=== PATIENT | female | born 1960 | race Caucasian/White ===

== ENCOUNTER → 2023-06-28 10:09 | Outpatient (CLI) | payer OTHER, SELFPAY ==
--- NOTE | 2023-06-28 10:11 | DI.RAD.S_ITS ---
PROCEDURE: XR KNEE RT 3V INDICATIONS: RIGHT KNEE PAIN TECHNIQUE: 3 views of the knee were acquired. COMPARISON: None. FINDINGS: Bones: No fractures or dislocations. Tricompartmental osteoarthritic changes most pronounced within the medial compartment with marginal spurring and moderate medial joint space narrowing. No suspicious bony lesions. Soft tissues: No joint effusion. No suspicious soft tissue calcifications. IMPRESSION: Moderate osteoarthritic changes of the right knee. No acute osseous abnormalities. Dictated by: Devyn Mcnulty M.D. on 06/28/2023 at 11:50 Approved by: Devyn Mcnulty M.D. on 06/28/2023 at 11:55
--- NOTE | 2023-06-28 10:11 | DI.RAD.S_ITS ---
PROCEDURE: XR HIP W PEL IF DONE RT 2V INDICATIONS: RIGHT HIP PAIN TECHNIQUE: AP pelvis with lateral view(s) of the right hip(s). COMPARISON: None. FINDINGS: Bones: No fractures or dislocations. Mild degenerative changes of the bilateral hips. Degenerative changes of the visualized lower lumbar spine and pubic symphysis. Pelvic ring appears intact. No suspicious bony lesions. Soft tissues: The visualized bowel gas pattern is normal. No suspicious soft tissue calcifications. IMPRESSION: No acute osseous abnormalities. Mild degenerative changes of the hips. Dictated by: Devyn Mcnulty M.D. on 06/28/2023 at 11:57 Approved by: Devyn Mcnulty M.D. on 06/28/2023 at 11:58
== END ==
PROVIDERS: PCP Student in an Organized Health Care Education/Training Program; Referring Provider Anesthesiology; Visit Provider Anesthesiology
DX: M25.561 Pain in right knee (principal); M25.551 Pain in right hip
CPT/HCPCS: 73502; 73562

== ENCOUNTER → 2023-08-12 11:33 | Outpatient (CLI) | payer OTHER, SELFPAY ==
--- NOTE | 2023-08-12 11:36 | DI.MG.S_ITS ---
BILATERAL DIGITAL SCREENING MAMMOGRAM 3D/2D WITH CAD: 08/12/2023 CLINICAL: Routine screening. Comparison is made to exams dated: 01/09/2019 mammogram, 12/23/2017 mammogram, and 01/13/2020 mammogram - outside location. Both breasts are heterogeneously dense, which may obscure small masses (category c / 51-75% glandular tissue). Current study was also evaluated with a Computer Aided Detection (CAD) system. There are benign calcifications in the right breast. There also are biopsy clips in the left breast. No significant masses, calcifications, or other findings are seen in either breast. There has been no significant interval change. IMPRESSION: BENIGN There is no mammographic evidence of malignancy. A 1 year screening mammogram is recommended. Based on the Tyrer Cuzick model (a risk assessment model) the patient's lifetime risk is 12.0% and her 10 year risk is 5.1%. According to the ACR, ACS, and NCCN guidelines, an annual breast MRI exam along with mammogram is recommended if the patient's lifetime risk is 20% or greater. This exam was interpreted at Station ID: [id number]. NOTE: For mammograms, a report in lay terms will be sent to the patient. Approximately 15% of breast malignancies will not be visualized mammographically. In the management of a palpable breast mass, a negative mammogram must not discourage biopsy of a clinically suspicious lesion. Electronically Signed By: Anup [email or web address]:08/12/2023 13:03:06 letter sent: Normal Exam ACR BI-RADS Category 2: Benign Finding(s) [id number]
== END ==
PROVIDERS: PCP Student in an Organized Health Care Education/Training Program; Referring Provider Student in an Organized Health Care Education/Training Program; Visit Provider Student in an Organized Health Care Education/Training Program
DX: Z12.31 Encounter for screening mammogram for malignant neoplasm of breast (principal); R92.333 Mammographic heterogeneous density, bilateral breasts
CPT/HCPCS: 77063; 77067

== ENCOUNTER → 2023-09-27 14:15 | Outpatient (CLI) | payer OTHER, SELFPAY ==
--- NOTE | 2023-09-27 14:16 | DI.RAD.S_ITS ---
PROCEDURE: XR KNEE LT 3V INDICATIONS: Left knee pain TECHNIQUE: 3 views of the knee were acquired. COMPARISON: [facility], CR, XR KNEE RT 3V, 06/28/2023, 10:23. FINDINGS: Bones: No fractures or dislocations. No suspicious bony lesions. Tricompartment osteophytes. Chondrocalcinosis. Slight interval increase in lateral compartment joint space loss and development of mild lateral subluxation of the tibia relative to the femur. Soft tissues: No joint effusion. No suspicious soft tissue calcifications. IMPRESSION: Progressive CPPD arthropathy. Dictated by: Jere Osborn M.D. on 09/27/2023 at 15:58 Approved by: Jere Osborn M.D. on 09/27/2023 at 16:00
== END ==
PROVIDERS: PCP Student in an Organized Health Care Education/Training Program; Referring Provider Anesthesiology; Visit Provider Anesthesiology
DX: M11.862 Other specified crystal arthropathies, left knee (principal); M25.562 Pain in left knee
CPT/HCPCS: 73562

== ENCOUNTER → 2024-09-05 13:58 | Outpatient (CLI) | payer OTHER, SELFPAY ==
--- NOTE | 2024-09-05 13:59 | DI.MG.S_ITS ---
MM screening mammo BI: 09/05/2024. BI-RADS: 2 CLINICAL: 63-year old female for bilateral screening mammogram. Tyrer-Cuzick lifetime risk of 10.2%. No personal or first-degree family history of breast cancer. The patient had prior bilateral breast biopsies. The patient had a mastopexy in both breasts. PRIOR EXAMS 08/12/2023, 01/13/2020, 01/09/2019. MAMMOGRAPHY TECHNIQUE: 2D and 3D (tomosynthesis) digital mammographic views obtained, with additional images as needed for full coverage. Current study was also evaluated with a Computer Aided Detection (CAD) system. DENSITY C. The breasts are heterogeneously dense, which may obscure small masses. MAMMOGRAPHY FINDINGS Right: No suspicious mass, asymmetry, microcalcification, or other abnormality seen. Left: Biopsy markers present on the left. There are no suspicious masses, calcifications, or other findings in the breast. IMPRESSION: Right * No evidence of malignancy. Left * No evidence of malignancy with benign findings. RECOMMENDATIONS Bilateral * Annual screening mammography. OVERALL ASSESSMENT CATEGORY BI-RADS-2: Benign. The [employer] recommends annual screening mammography beginning at age 40 for women with average risk of breast cancer. ELECTRONICALLY SIGNED: Anup Orr M.D. on 09/05/2024 at 03:06:41 PM PT Interpreting Station ID: [id number]
== END ==
PROVIDERS: PCP Student in an Organized Health Care Education/Training Program; Referring Provider Student in an Organized Health Care Education/Training Program; Visit Provider Student in an Organized Health Care Education/Training Program
DX: Z12.31 Encounter for screening mammogram for malignant neoplasm of breast (principal); R92.333 Mammographic heterogeneous density, bilateral breasts
CPT/HCPCS: 77063; 77067

== ENCOUNTER → 2024-10-18 09:21 | Outpatient (CLI) | payer OTHER, SELFPAY ==
[2024-10-18 09:59] LABS: Add Manual Diff / Slide Review NO; Basophils Absolute Auto 0 /uL (0-100); Basophils Percent Auto 0.6 % (0-2); Eosinophils Absolute Auto 200 /uL (0-450); Eosinophils Percent Auto 2.7 % (2-4); Hematocrit 36.5 % (36-46); Hemoglobin 12.5 g/dL (12.0-16.0); Lymphocytes Absolute Auto 2500 /uL (1100-4500); Mean Corpuscular HGB Conc 34.2 % (30-36); Mean Corpuscular Hemoglobin 30.4 PG (26-34); Mean Corpuscular Volume 88.6 fL (80-100); Monocytes Absolute Auto 400 /uL (0-900); Monocytes Percent Auto 7.7 % (3-14); Neutrophils Absolute Auto 2500 /uL (1500-7000); Platelet Count 220 X10^3/uL (150-400); Red Blood Cell Count 4.12 X10^6/uL (4.0-5.2); Red Cell Distribution Width 12.7 % (11.6-14.8); White Blood Cell Count 5.6 X10^3/uL (4.5-11.0)
[2024-10-18 10:23] LABS: Alanine Aminotransferase 20 IU/L (<35); Albumin 4.8 g/dL (3.5-5.0); Albumin Globulin Ratio 1.8 (1.0-2.8); Alkaline Phosphatase 47 U/L (38-126); Aspartate Aminotransferase 30 IU/L (14-36); BUN Creatinine Ratio 24.7 (6-22); Bilirubin Total 0.7 mg/dL (0.2-1.3); Blood Urea Nitrogen 18 mg/dL (7-17); Calcium 10.6 mg/dL (8.4-10.2); Carbon Dioxide 27 mmol/L (22-32); Chloride 104 mmol/L (98-107); Cholesterol 212 mg/dL (140-199); Estimated Glomerular Filt Rate > 60 mL/min (>60); Globulin 2.6 g/dL (1.7-4.1); Glucose 82 mg/dL (70-99); HDL Cholesterol 75 mg/dL (40-60); HEMOLYSIS < 15 (0-50); LDL Cholesterol Calculated 100 mg/dL (<100); Sodium 139 mmol/L (137-145); Total Protein 7.4 g/dL (6.3-8.2); Triglycerides 186 mg/dL (35-150)
== END ==
PROVIDERS: PCP Student in an Organized Health Care Education/Training Program; Referring Provider Student in an Organized Health Care Education/Training Program; Visit Provider Student in an Organized Health Care Education/Training Program
DX: E78.00 Pure hypercholesterolemia, unspecified (principal); I10 Essential (primary) hypertension
CPT/HCPCS: 36415; 80053; 80061; 85025

== ENCOUNTER → 2024-10-23 10:58 | Outpatient (CLI) | payer OTHER, SELFPAY ==
[2024-10-24 10:12] LABS: Calcium 9.7 mg/dL (8.7-10.3); Parathyroid Hormone, Intact 72 pg/mL (15-65)
== END ==
PROVIDERS: PCP Student in an Organized Health Care Education/Training Program; Referring Provider Student in an Organized Health Care Education/Training Program; Visit Provider Student in an Organized Health Care Education/Training Program
DX: E83.52 Hypercalcemia (principal)
CPT/HCPCS: 36415; 82310; 83970

== ENCOUNTER → 2024-11-15 10:37 | Outpatient (CLI) | payer OTHER, SELFPAY ==
[2024-11-15 11:23] LABS: LDL Cholesterol Direct 128 mg/dL (<100)
[2024-11-17 08:36] LABS: Calcium 9.9 mg/dL (8.7-10.3); Parathyroid Hormone, Intact 60 pg/mL (15-65)
== END ==
PROVIDERS: PCP Student in an Organized Health Care Education/Training Program; Referring Provider Student in an Organized Health Care Education/Training Program; Visit Provider Student in an Organized Health Care Education/Training Program
DX: E83.52 Hypercalcemia (principal); E78.00 Pure hypercholesterolemia, unspecified
CPT/HCPCS: 36415; 82310; 83721; 83970

== ENCOUNTER 2024-11-28 08:29 | Emergency (ER) | payer OTHER, SELFPAY ==
[2024-11-28] VITALS (27 sets, daily range): BP systolic 105–144; BP diastolic 65–92; PULSE 84–107; RESP 15–18; TEMP 36.3–36.8; O2SAT 91–99; BMI 25.7
--- NOTE | 2024-11-28 09:12 | ED.ABDPAIN ---
HPI - Abdominal Pain <Alcon Knapp MD - Last Filed: 12/17/24 18:13> General Chief Complaint: Abdominal Pain Stated Complaint: Lower left stomach pain X 4 DAYS Time Seen by Provider: 11/28/24 09:06 Source: patient Mode of arrival: Ambulatory History of Present Illness HPI narrative: Patient has had slow onset left lower quadrant pain since this past Wednesday 3 days ago. No nausea or vomiting no urinary changes no urinary urgency. Pain radiates to the left lower back. Worse with movement and leaning forward. Patient had colonoscopy about 6 years ago. No known history of diverticulosis. No history of kidney stones. No black or bloody stools. Related Data Home Medications ?Medication ?Instructions ?Recorded ?Confirmed hard/soft/gas permeable prods 04/05/23 12/01/24 (Systane Contacts eye drops) loratadine 10 mg tablet (Claritin) 10 mg PO DAILY 04/05/23 12/07/24 tretinoin 0.025 % topical cream applic topical ONCE PM PRN 11/28/24 12/07/24 Previous Rx's ?Medication ?Instructions ?Recorded triamcinolone acetonide 0.5 % 1 applic topical DAILY #15 grams 06/24/23 topical cream amlodipine 10 mg tablet 10 mg PO DAILY #90 tabs 06/19/24 evolocumab 140 mg/mL subcutaneous 140 mg SUBCUT Q2W #6 mL 06/19/24 pen injector (Louis Velasquez) lisinopril 40 mg tablet 40 mg PO DAILY #90 tabs 06/19/24 meloxicam 15 mg tablet 15 mg PO DAILY #90 tabs 06/19/24 omeprazole 20 mg capsule,delayed 20 mg PO DAILY #90 caps 06/19/24 release omeprazole 40 mg capsule,delayed 40 mg PO DAILY #90 caps 08/03/24 release cyclosporine 0.05 % eye drops in a 1 drp EYE-BOTH BID #60 ea 09/08/24 dropperette gabapentin 300 mg capsule 600 mg (2 x 300 mg) PO BID #360 11/13/24 caps hydrocodone 5 mg-acetaminophen 325 1 tab PO Q8H PRN pain #10 tabs 11/28/24 mg tablet cyclobenzaprine 7.5 mg tablet 7.5 mg PO BEDTIME PRN muscle spasm 12/01/24 #20 tabs oxycodone 5 mg tablet 5 mg PO Q8H PRN pain #14 tabs 12/07/24 Allergies Allergy/AdvReac Type Severity Reaction Status Date / Time [id number] Reductase AdvReac Severe Muscle Pain Verified 12/07/24 12:00 Inhibitor Review of Systems <Alcon Knapp MD - Last Filed: 12/17/24 18:13> Review of Systems Narrative: GENERAL: Negative chills, fatigue, malaise, fever, sweats. HEENT: Negative sinus pain, ear pain, sore throat RESPIRATORY: Negative dyspnea, cough CARDIOVASCULAR: Negative chest pain, palpitations GASTROINTESTINAL: Negative vomiting, nausea, positive abdominal pain : Negative dysuria, frequency, hematuria MUSCULOSKELETAL: Negative muscle or bony pain SKIN: Negative rash, skin lesions NEUROLOGIC: Negative weakness, numbness ROS Unobtainable: All systems reviewed & are unremarkable except as noted in HPI and below Patient History <Alcon Knapp MD - Last Filed: 12/17/24 18:13> Medical History (Updated 12/13/24 @ 00:00 by ) Bilateral knee pain Osteoarthritis of knees, bilateral Left knee pain Osteoarthritis of hips, bilateral Osteoarthritis of right knee Right hip pain Right knee pain Smoking Status: Never smoker Exam <Alcon Knapp MD - Last Filed: 12/17/24 18:13> Narrative Exam Narrative: GENERAL: in no distress, not toxic not dyspneic HEAD: Normocephalic. EYES: Pupils equal round ENT: Mucous membranes moist. NECK: Trachea midline. CARDIOVASCULAR: Regular rate and rhythm RESPIRATORY: Clear to auscultation. Breath sounds equal bilaterally. No wheezes, rales, or rhonchi. GASTROINTESTINAL: Abdomen soft, no CVA tenderness. There is reproducible lower quadrant tenderness. No McBurney point tenderness no Kumar sign. No guarding no rebound. No pain out of portion exam. No peritoneal signs. Bowel sounds are present. EXTREMITIES: No gross deformities. BACK: No flank tenderness. NEURO: AOx4. Clear speech SKIN: Warm and dry PSYCH: Not anxious, is cooperative Initial Vital Signs Initial Vital Signs: Vital Signs Pulse Rate 105 H 11/28/24 08:37 Pulse Oximetry 98 11/28/24 08:37 <Brooke Ro MD - Last Filed: 11/28/24 21:07> Initial Vital Signs Initial Vital Signs: Vital Signs Pulse Rate 105 H 11/28/24 08:37 Pulse Oximetry 98 11/28/24 08:37 Course <Alcon Knapp MD - Last Filed: 12/17/24 18:13> Orders Ordered: Discontinued Medications Hydrocodone Bitart/Acetaminophen (Hydrocodone/Acet 5/325 Prepack) 1 bottle MISC DIRECTED ONE Stop: 11/28/24 21:07 Last Admin: 11/28/24 21:11 Dose: 1 bottle Documented By: STEPHAN Cefdinir (Cefdinir 300 Mg Capsule) 300 mg PO NOW ONE Stop: 11/28/24 12:22 Last Admin: 11/28/24 12:30 Dose: 300 mg Documented By: STEPHAN(2) Hydromorphone HCl (Hydromorphone 1 Mg Inj) 1 mg IV NOW ONE Stop: 11/28/24 10:47 Last Admin: 11/28/24 11:03 Dose: 1 mg Documented By: ATUL Hydromorphone HCl (Hydromorphone 1 Mg Inj) 1 mg IV NOW ONE Stop: 11/28/24 15:55 Last Admin: 11/28/24 16:01 Dose: 1 mg Documented By: STEPHAN Sodium Chloride (Normal Saline 0.9%) 250 mls @ 1,000 mls/hr IV NOW ONE Stop: 11/28/24 09:25 Last Infusion: 11/28/24 10:18 Dose: Infused Documented By: Admin: 11/28/24 09:30 Dose: 1,000 mls/hr Documented By: ATUL Ketorolac Tromethamine (Ketorolac 30 Mg/Ml Vial) 15 mg IV NOW ONE Stop: 11/28/24 09:12 Last Admin: 11/28/24 09:30 Dose: 15 mg Documented By: ATUL Ondansetron HCl (Ondansetron 4 Mg/2 Ml Inj) 4 mg IV NOW PRN PRN Reason: Nausea And Vomiting Ondansetron HCl (Ondansetron 4 Mg Odt) 4 mg PO NOW PRN PRN Reason: Nausea And Vomiting Vital Signs Vital signs: Vital Signs - 8 hr 11/28/24 13:30 11/28/24 14:00 11/28/24 14:02 Temperature 97.4 F L Pulse Rate 94 H 102 H Respiratory Rate Blood Pressure 119/72 Pulse Oximetry 94 93 Oxygen Delivery Method 11/28/24 14:02 11/28/24 15:00 11/28/24 15:40 Temperature Pulse Rate 96 H 90 Respiratory Rate Blood Pressure 144/83 H Pulse Oximetry 98 93 Oxygen Delivery Method Room Air 11/28/24 15:40 11/28/24 16:00 11/28/24 16:18 Temperature Pulse Rate 104 H 93 H Respiratory Rate 18 Blood Pressure 116/78 Pulse Oximetry 96 95 Oxygen Delivery Method Room Air 11/28/24 16:30 11/28/24 17:00 11/28/24 17:30 Temperature Pulse Rate 85 95 H Respiratory Rate 16 15 Blood Pressure 116/67 Pulse Oximetry 95 97 Oxygen Delivery Method 11/28/24 18:34 11/28/24 18:34 11/28/24 19:00 Temperature Pulse Rate 94 H 84 Respiratory Rate Blood Pressure 125/71 Pulse Oximetry 94 91 Oxygen Delivery Method Room Air 11/28/24 19:01 11/28/24 19:01 11/28/24 19:30 Temperature Pulse Rate 88 91 H Respiratory Rate 18 18 Blood Pressure 111/75 Pulse Oximetry 94 95 Oxygen Delivery Method Room Air 11/28/24 20:00 11/28/24 20:00 Temperature Pulse Rate 90 Respiratory Rate Blood Pressure 105/65 Pulse Oximetry 95 Oxygen Delivery Method Room Air <Brooke Ro MD - Last Filed: 11/28/24 21:07> Orders Ordered: Discontinued Medications Hydrocodone Bitart/Acetaminophen (Hydrocodone/Acet 5/325 Prepack) 1 bottle MISC DIRECTED ONE Stop: 11/28/24 21:07 Last Admin: 11/28/24 21:11 Dose: 1 bottle Documented By: STEPHAN Cefdinir (Cefdinir 300 Mg Capsule) 300 mg PO NOW ONE Stop: 11/28/24 12:22 Last Admin: 11/28/24 12:30 Dose: 300 mg Documented By: STEPHAN(2) Hydromorphone HCl (Hydromorphone 1 Mg Inj) 1 mg IV NOW ONE Stop: 11/28/24 10:47 Last Admin: 11/28/24 11:03 Dose: 1 mg Documented By: ATUL Hydromorphone HCl (Hydromorphone 1 Mg Inj) 1 mg IV NOW ONE Stop: 11/28/24 15:55 Last Admin: 11/28/24 16:01 Dose: 1 mg Documented By: SB Sodium Chloride (Normal Saline 0.9%) 250 mls @ 1,000 mls/hr IV NOW ONE Stop: 11/28/24 09:25 Last Infusion: 11/28/24 10:18 Dose: Infused Documented By: Admin: 11/28/24 09:30 Dose: 1,000 mls/hr Documented By: ATUL Ketorolac Tromethamine (Ketorolac 30 Mg/Ml Vial) 15 mg IV NOW ONE Stop: 11/28/24 09:12 Last Admin: 11/28/24 09:30 Dose: 15 mg Documented By: ATUL Ondansetron HCl (Ondansetron 4 Mg/2 Ml Inj) 4 mg IV NOW PRN PRN Reason: Nausea And Vomiting Ondansetron HCl (Ondansetron 4 Mg Odt) 4 mg PO NOW PRN PRN Reason: Nausea And Vomiting Vital Signs Vital signs: Vital Signs - 8 hr 11/28/24 13:30 11/28/24 14:00 11/28/24 14:02 Temperature 97.4 F L Pulse Rate 94 H 102 H Respiratory Rate Blood Pressure 119/72 Pulse Oximetry 94 93 Oxygen Delivery Method 11/28/24 14:02 11/28/24 15:00 11/28/24 15:40 Temperature Pulse Rate 96 H 90 Respiratory Rate Blood Pressure 144/83 H Pulse Oximetry 98 93 Oxygen Delivery Method Room Air 11/28/24 15:40 11/28/24 16:00 11/28/24 16:18 Temperature Pulse Rate 104 H 93 H Respiratory Rate 18 Blood Pressure 116/78 Pulse Oximetry 96 95 Oxygen Delivery Method Room Air 11/28/24 16:30 11/28/24 17:00 11/28/24 17:30 Temperature Pulse Rate 85 95 H Respiratory Rate 16 15 Blood Pressure 116/67 Pulse Oximetry 95 97 Oxygen Delivery Method 11/28/24 18:34 11/28/24 18:34 11/28/24 19:00 Temperature Pulse Rate 94 H 84 Respiratory Rate Blood Pressure 125/71 Pulse Oximetry 94 91 Oxygen Delivery Method Room Air 11/28/24 19:01 11/28/24 19:01 11/28/24 19:30 Temperature Pulse Rate 88 91 H Respiratory Rate 18 18 Blood Pressure 111/75 Pulse Oximetry 94 95 Oxygen Delivery Method Room Air 11/28/24 20:00 11/28/24 20:00 Temperature Pulse Rate 90 Respiratory Rate Blood Pressure 105/65 Pulse Oximetry 95 Oxygen Delivery Method Room Air MDM - Abdominal Pain <Alcon Knapp MD - Last Filed: 12/17/24 18:13> Lab Data 11/28/24 08:59 11/28/24 08:59 Labs: Lab Results 11/28/24 11/28/24 Range/Units 08:59 09:30 WBC 8.7 (4.5-11.0) X10^3/uL RBC 4.35 (4.0-5.2) X10^6/uL Hgb 13.0 (12.0-16.0) g/dL Hct 38.7 (36-46) % MCV 88.8 (80-100) fL MCH 29.9 (26-34) PG MCHC 33.7 (30-36) % RDW 13.3 (11.6-14.8) % Plt Count 256 (150-400) X10^3/uL Neut % (Auto) 62.8 (50-75) % Lymph % (Auto) 29.2 (25-40) % [place] % (Auto) 6.0 (3-14) % Eos % (Auto) 1.3 L (2-4) % Baso % (Auto) 0.7 (0-2) % Neut # (Auto) 5400 (4838-6840) /uL Lymph # (Auto) 2500 (0237-8405) /uL [place] # (Auto) 500 (0-900) /uL Eos # (Auto) 100 (0-450) /uL Baso # (Auto) 100 (0-100) /uL Sodium 138 (137-145) mmol/L Potassium 4.1 (3.4-5.1) mmol/L Chloride 99 (98-107) mmol/L Carbon Dioxide 27 (22-32) mmol/L BUN 18 H (7-17) mg/dL Creatinine 0.69 (0.52-1.04) mg/dL Estimated GFR > 60 (>60) mL/min BUN/Creatinine Ratio 26.1 H (6-22) Glucose 101 H (70-99) mg/dL Calcium 10.3 H (8.4-10.2) mg/dL Total Bilirubin 0.7 (0.2-1.3) mg/dL AST 89 H (14-36) IU/L ALT 42 H (<35) IU/L Alkaline Phosphatase 86 (38-126) U/L Total Protein 8.1 (6.3-8.2) g/dL Albumin 5.1 H (3.5-5.0) g/dL Globulin 3.0 (1.7-4.1) g/dL Albumin/Globulin Ratio 1.7 (1.0-2.8) Lipase 63 (23-300) U/L Ur Bilirubin Confirm Negative (Negative) Urine RBC 0-1/hpf (0-5/HPF) Urine WBC 0-1/hpf (0-5/HPF) Ur Squamous Epith Cells 1-5 /hpf (0-5/HPF) Ur Renal Epithelial Cell 5-10/hpf H (0-1/HPF) Amorphous Sediment 1+ Urine Bacteria None seen (None) Ur Culture Indicated? Cult not indicated Vol Urine Centrifuged 10ml (spun) Point of care testing: Urine Dip Bedside Urine Glucose Negative Bedside Urine Bilirubin + 1 Bedside Urine Ketone - Negative Urine Specific [place] 1.020 Bedside Urine Occult Blood + Bedside Urine pH 6.0 Bedside Urine Protein - Negative Bedside Urine Urobilinogen - Negative Bedside Urine Nitrite - Negative Bedside Urine Leukocytes + [address] scan - abdomen/pelvis: Radiologist's Impression: [place] [address] CT Scan Report Signed Patient: Sonia Kent MR#: [id number] : 1960 Acct:[id number] Age/Sex: 64 / F Date of Service: 11/28/24 Loc: ED Accession Number: [id number] Procedure: CT abdomen pelvis w con Ordering Provider: Alcon Knapp MD PROCEDURE: CT ABDOMEN PELVIS W CON INDICATIONS: left lower quadrant pain TECHNIQUE: After the administration of intravenous contrast, axial sections acquired from the lung bases to the pubic symphysis. Coronal and sagittal reformats were performed. For radiation dose reduction, the following was used: automated exposure control, adjustment of mA and/or kV according to patient size. COMPARISON: None. FINDINGS: Image quality: Diagnostic Lower chest: Unremarkable lung bases. Normal heart size. Liver: Unremarkable Gallbladder and biliary system: Mildly dilated CBD at 1 cm Pancreas: No ductal dilation Spleen: Nonenlarged Adrenals: No discrete nodules Kidneys: No solid renal mass. No hydronephrosis. Vessels and lymph nodes: The main portal vein is patent. No abdominal aortic aneurysm. Mild atherosclerotic calcifications are present. No enlarged lymph nodes identified by size criteria. Bowel and peritoneum: No small bowel obstruction. Nondilated appendix. No acute inflammatory changes in the left lower quadrant. No drainable abscess or ascites. Body wall: Unremarkable Pelvis: Bladder is unremarkable. Reproductive organs are unremarkable on limited CT evaluation Bones: No aggressive appearing osseous abnormality. There are degenerative changes. IMPRESSION: No bowel obstruction. No significant inflammatory changes in the left lower quadrant. Nondilated appendix. Mildly dilated CBD, without definite obstructing mass. Correlate LFTs and consider MRCP if clinically indicated Other findings above. Dictated by: Lane Sandoval M.D. on 11/28/2024 at 9:42 Approved by: Lane Sandoval M.D. on 11/28/2024 at 9:47 [facility] Narrative Medical decision making narrative: Patient has had slow onset left lower quadrant pain since this past Wednesday 3 days ago. No nausea or vomiting no urinary changes no urinary urgency. Pain radiates to the left lower back. Worse with movement and leaning forward. Patient had colonoscopy about 6 years ago. No known history of diverticulosis. No history of kidney stones. No black or bloody stools. After history and exam, CBC CMP urinalysis CT abdomen pelvis Toradol normal saline [facility] Medical records reviewed: Walk-in clinic notes prior to arrival Differential considered: Includes but not limited to diverticulosis diverticulitis colitis UTI cystitis kidney stone Lab Test results independently reviewed as above. Pertinent findings: WBC 8.7 hemoglobin 13.0 sodium 138 potassium 4.1 AST 89 ALT 42 lipase 63 Imaging studies independently reviewed: Acute finding dilated CBD Consultations: Re-evaluations: 10:46 a.m.. Patient is still uncomfortable. Reviewed results with her so far. Elevated liver enzymes and dilated common bile duct recommending MRCP according to CT/radiologist. She agrees. She can find a ups driver. Dilaudid is ordered. Discussion: 6:[address] Knapp. Sign-out Dr. Newton Patient be treated for UTI. Omnicef was given. Diagnosis: <Brooke Ro MD - Last Filed: 11/28/24 21:07> Lab Data Labs: Lab Results 11/28/24 11/28/24 Range/Units 08:59 09:30 WBC 8.7 (4.5-11.0) X10^3/uL RBC 4.35 (4.0-5.2) X10^6/uL Hgb 13.0 (12.0-16.0) g/dL Hct 38.7 (36-46) % MCV 88.8 (80-100) fL MCH 29.9 (26-34) PG MCHC 33.7 (30-36) % RDW 13.3 (11.6-14.8) % Plt Count 256 (150-400) X10^3/uL Neut % (Auto) 62.8 (50-75) % Lymph % (Auto) 29.2 (25-40) % [place] % (Auto) 6.0 (3-14) % Eos % (Auto) 1.3 L (2-4) % Baso % (Auto) 0.7 (0-2) % Neut # (Auto) 5400 (0106-8505) /uL Lymph # (Auto) 2500 (8334-7055) /uL [place] # (Auto) 500 (0-900) /uL Eos # (Auto) 100 (0-450) /uL Baso # (Auto) 100 (0-100) /uL Sodium 138 (137-145) mmol/L Potassium 4.1 (3.4-5.1) mmol/L Chloride 99 (98-107) mmol/L Carbon Dioxide 27 (22-32) mmol/L BUN 18 H (7-17) mg/dL Creatinine 0.69 (0.52-1.04) mg/dL Estimated GFR > 60 (>60) mL/min BUN/Creatinine Ratio 26.1 H (6-22) Glucose 101 H (70-99) mg/dL Calcium 10.3 H (8.4-10.2) mg/dL Total Bilirubin 0.7 (0.2-1.3) mg/dL AST 89 H (14-36) IU/L ALT 42 H (<35) IU/L Alkaline Phosphatase 86 (38-126) U/L Total Protein 8.1 (6.3-8.2) g/dL Albumin 5.1 H (3.5-5.0) g/dL Globulin 3.0 (1.7-4.1) g/dL Albumin/Globulin Ratio 1.7 (1.0-2.8) Lipase 63 (23-300) U/L Ur Bilirubin Confirm Negative (Negative) Urine RBC 0-1/hpf (0-5/HPF) Urine WBC 0-1/hpf (0-5/HPF) Ur Squamous Epith Cells 1-5 /hpf (0-5/HPF) Ur Renal Epithelial Cell 5-10/hpf H (0-1/HPF) Amorphous Sediment 1+ Urine Bacteria None seen (None) Ur Culture Indicated? Cult not indicated Vol Urine Centrifuged 10ml (spun) Point of care testing: Urine Dip Bedside Urine Glucose Negative Bedside Urine Bilirubin + 1 Bedside Urine Ketone - Negative Urine Specific [place] 1.020 Bedside Urine Occult Blood + Bedside Urine pH 6.0 Bedside Urine Protein - Negative Bedside Urine Urobilinogen - Negative Bedside Urine Nitrite - Negative Bedside Urine Leukocytes + 70 Esterase MDM Narrative Medical decision making narrative: Patient has had slow onset left lower quadrant pain since this past Wednesday 3 days ago. No nausea or vomiting no urinary changes no urinary urgency. Pain radiates to the left lower back. Worse with movement and leaning forward. Patient had colonoscopy about 6 years ago. No known history of diverticulosis. No history of kidney stones. No black or bloody stools. After history and exam, CBC CMP urinalysis CT abdomen pelvis Toradol normal saline MDM Medical records reviewed: Walk-in clinic notes prior to arrival Differential considered: Includes but not limited to diverticulosis diverticulitis colitis UTI cystitis kidney stone Lab Test results independently reviewed as above. Pertinent findings: WBC 8.7 hemoglobin 13.0 sodium 138 potassium 4.1 AST 89 ALT 42 lipase 63 Imaging studies independently reviewed: Acute finding dilated CBD Consultations: Re-evaluations: 10:46 a.m.. Patient is still uncomfortable. Reviewed results with her so far. Elevated liver enzymes and dilated common bile duct recommending MRCP according to CT/radiologist. She agrees. She can find a ups driver. Dilaudid is ordered. Discussion: 6:[address] Knapp. Sign-out Dr. Newton Patient be treated for UTI. Omnicef was given. Diagnosis: Dr Ro. Care assumed, chart reviewed, patient independently evaluated. MRI done 4 slightly dilated common bile duct in the setting of more left lower quadrant pain shows no acute findings. Labs are notable for minimally elevated AST and ALT at 89 and 42 respectively. Normal bilirubin and alk-phos. CBC is unremarkable, CT scan does not suggest significant infection. At this point I do not have a complete explanation for her abdominal pain however there was no evidence of diverticulitis, pyelonephritis, nephrolithiasis, obstruction, mass or tumor, with minimally elevated LFTs in dilated bile duct possibility of obstructed common bile duct up entertained and MRI does not confirm that. We discussed use of pain medication, prescription for Vicodin is written. Incidentally noted was a urinary tract infection. I do not think this is contributing to her pain. She was given a dose of ceftriaxone and an additional prescription for 3 days of Bactrim. Encouraged her to return if she had worsening symptoms are different findings. She is safe for discharge Discharge Plan Departure Patient Disposition: Home Clinical Impression: Abdominal pain Instructions: DI for Urinary Tract Infection (UTI), DI for Abdominal Pain-Adult Activity Restrictions/Additional Instructions: Thank you for coming in today Your workup was actually very reassuring. Your blood work was essentially normal. There were 2 liver enzymes that were minimally elevated. You are CT scan suggested that you are common bile duct was right at the limit of normal in terms of dilation. Because of that finding along with the liver enzyme finding we did specialized MRI that looks at the head of the pancreas, pancreatic ducts and liver. This study is entirely normal. Your abdominal pain does not seem to have a life-threatening explanation, no diverticulitis, internal hernia, flank pain, with 3 days of pain and still no rash I do not suspect shingles. After today's workup the most likely explanation is some type of musculoskeletal pain. I would recommend a follow up with your primary care physician. If you are continuing to have pain a referral to physical therapy maybe the next appropriate step in getting you to feeling better Your urine sample incidentally did suggest a developing bladder infection. You were given an initial dose of IV antibiotics, I have sent a prescription for Bactrim 2 pills twice a day, you only need 3 days' worth after the initial IV dose. I believe this finding is incidental and not the source of your pain. If you find that you are getting worse or develop any new symptoms, please feel free to return to the emergency department for further evaluation. Prescriptions: New hydrocodone-acetaminophen 5-325 mg tablet 1 tab PO Q8H PRN (Reason: pain) Qty: 10 0RF No Action loratadine [Claritin] 10 mg tablet 10 mg PO DAILY (DME) Systane Contacts Drops See Rx Instructions .Route Rx Instructions: As directed amlodipine 10 mg tablet 10 mg PO DAILY Qty: 90 3RF lisinopril 40 mg tablet 40 mg PO DAILY Qty: 90 3RF meloxicam 15 mg tablet 15 mg PO DAILY Qty: 90 3RF omeprazole 20 mg capsule,delayed release(DR/EC) 20 mg PO DAILY Qty: 90 3RF Repatha SureClick 140 mg/mL pen injector 140 mg SUBCUT Q2W Qty: 6 3RF tretinoin 0.025 % cream topical ONCE PM PRN oxycodone 5 mg tablet 5 mg PO Q8H PRN (Reason: pain) Qty: 14 0RF triamcinolone acetonide 0.5 % cream 1 applic topical DAILY Qty: 15 0RF omeprazole 40 mg capsule,delayed release(DR/EC) 40 mg PO DAILY Qty: 90 1RF cyclosporine 0.05 % dropperette 1 drp EYE-BOTH BID Qty: 60 0RF gabapentin 300 mg capsule 600 mg PO BID Qty: 360 3RF methylprednisolone acetate [Depo-Medrol] 40 mg/mL suspension 40 mg IM ONCE Qty: 40 0RF methylprednisolone acetate [Depo-Medrol] 40 mg/mL suspension 40 mg IM ONCE Qty: 40 0RF cyclobenzaprine 7.5 mg tablet 7.5 mg PO BEDTIME PRN (Reason: muscle spasm) Qty: 20 0RF Referrals: Shelby Frost MD [Primary Care Provider, Family Practice] Stand Alone Forms: Patient Portal/API
[2024-11-28 09:23] LABS: Add Manual Diff / Slide Review NO; Basophils Absolute Auto 100 /uL (0-100); Basophils Percent Auto 0.7 % (0-2); Eosinophils Absolute Auto 100 /uL (0-450); Eosinophils Percent Auto 1.3 % (2-4); Hematocrit 38.7 % (36-46); Lymphocytes Absolute Auto 2500 /uL (1100-4500); Lymphocytes Percent Auto 29.2 % (25-40); Mean Corpuscular HGB Conc 33.7 % (30-36); Mean Corpuscular Hemoglobin 29.9 PG (26-34); Mean Corpuscular Volume 88.8 fL (80-100); Monocytes Absolute Auto 500 /uL (0-900); Neutrophils Absolute Auto 5400 /uL (1500-7000); Neutrophils Percent Auto 62.8 % (50-75); Platelet Count 256 X10^3/uL (150-400); Red Blood Cell Count 4.35 X10^6/uL (4.0-5.2); Red Cell Distribution Width 13.3 % (11.6-14.8); White Blood Cell Count 8.7 X10^3/uL (4.5-11.0)
[2024-11-28] MEDS: SODIUM CHLORIDE 0.9% 250 ML 1000 ML IV (09:30)
[2024-11-28] MEDS: KETOROLAC 30 MG/ML VIAL 15 MG IV (09:30)
[2024-11-28 09:31] LABS: Alanine Aminotransferase 42 IU/L (<35); Albumin 5.1 g/dL (3.5-5.0); Albumin Globulin Ratio 1.7 (1.0-2.8); Alkaline Phosphatase 86 U/L (38-126); Aspartate Aminotransferase 89 IU/L (14-36); BUN Creatinine Ratio 26.1 (6-22); Bilirubin Total 0.7 mg/dL (0.2-1.3); Blood Urea Nitrogen 18 mg/dL (7-17); Calcium 10.3 mg/dL (8.4-10.2); Carbon Dioxide 27 mmol/L (22-32); Chloride 99 mmol/L (98-107); Estimated Glomerular Filt Rate > 60 mL/min (>60); Glucose 101 mg/dL (70-99); HEMOLYSIS < 15 (0-50); Lipase 63 U/L (23-300); Potassium 4.1 mmol/L (3.4-5.1); Sodium 138 mmol/L (137-145); Total Protein 8.1 g/dL (6.3-8.2)
[2024-11-28 10:27] LABS: Ictotest Urine Negative (Negative)
[2024-11-28 10:28] LABS: Urine Volume 10mL (spun)
[2024-11-28 10:29] LABS: Amorphous Sediment Urine 1+; Bacteria Urine None Seen; Culture Indicated Urine Cult Not Indicated; RBC Urine 0-1/HPF (0-5/HPF); Renal Epithelial Cells Urine 5-10/HPF (0-1/HPF); Squamous Epithelial Cell Urine 1-5 /HPF (0-5/HPF); WBC Urine 0-1/HPF (0-5/HPF)
--- NOTE | 2024-11-28 10:43 | DI.MRI.S_ITS ---
PROCEDURE: MR AB PANCREATIC/MRCP PROTOCOL INDICATIONS: Abdominal pain/elevated LFT TECHNIQUE: Coronal HASTE through the abdomen, axial 2-D FLASH in- and [id number], and breath-hold T2 FSE with fat saturation through the biliary system and pancreas. Oblique coronal and axial thin-slice HASTE, radial thick-slab HASTE centered on the extrahepatic bile ducts. Axial vibe pre and postcontrast. Coronal vibe postcontrast. COMPARISON: [facility], CT, CT ABDOMEN PELVIS W CON, 11/28/2024, 9:14. FINDINGS: Image quality: Diagnostic. Gallbladder: Within normal limits in size. No pericholecystic fluid. No gallstones identified. Biliary ducts: CBD measures 1.1 cm, (3/14). The CBD tapers distally. The intrahepatic ducts are mildly prominent. No choledocholithiasis. Pancreas: No ductal dilation. No peripancreatic fluid collection. No cystic lesion. OTHER: Lung bases: Unremarkable. Liver: No solid mass. Spleen: Size is within normal limits. Adrenal Glands: No adrenal nodules. Kidneys and Ureters: No hydronephrosis. No solid mass. No complex renal cystic lesion which requires follow up. Stomach and Bowel: Normal colonic caliber, without significant wall thickening. Peritoneum: No abnormal intraperitoneal fluid. No free air. Ventral Wall: No hernia. Abdominal Nodes: No retroperitoneal or mesenteric adenopathy by size criteria. Vessels: Aorta and inferior vena cava are normal in size. Bones: No aggressive osseous abnormality. IMPRESSION: 1. Mild biliary ductal dilatation. No choledocholithiasis. 2. No pancreatic ductal dilatation. No mass or adenopathy. 3. No free fluid. Dictated by: Anup Orr M.D. on 11/28/2024 at 19:03 Approved by: Anup Orr M.D. on 11/28/2024 at 19:10
[2024-11-28] MEDS: HYDROMORPHONE 1 MG INJ IV ×2 (11:03→16:01)
[2024-11-28] MEDS: CEFDINIR 300 MG CAPSULE PO (12:30)
--- NOTE | 2024-11-28 16:39 | PC.NURSE ---
Patient oxygen saturation dips to 88% on RA. Encouraged to take deep breaths. Oxygen improves to WNL. After another minute or two oxygen saturation dips to 86% on RA. This RN places patient on 1.5L via NC and her oxygen saturation improves to 97%. Pt is alert and oriented and talking with this RN.
[2024-11-28] MEDS: HYDROCODONE/ACET 5/325 PREPACK 1 BOTTLE MISC (21:11)
== END 2024-11-28 21:19 | disposition home or self-care (01) ==
PROVIDERS: Emergency Medicine; Emergency Provider Emergency Medicine; PCP Student in an Organized Health Care Education/Training Program
DX: R10.32 Left lower quadrant pain (principal)
CPT/HCPCS: 36415; 74177; 74183; 80053; 81003; 81015; 83690; 85025; 96361; 96374; 96375; 96376; 99284; A9579; J1171; J1885

== ENCOUNTER → 2024-12-20 09:21 | Outpatient (CLI) | payer OTHER, SELFPAY ==
[2024-12-20 10:10] LABS: Add Manual Diff / Slide Review NO; Hematocrit 35.3 % (36-46); Hemoglobin 12.4 g/dL (12.0-16.0); Lymphocytes Absolute Auto 2100 /uL (1100-4500); Mean Corpuscular HGB Conc 35.2 % (30-36); Mean Corpuscular Hemoglobin 30.7 PG (26-34); Mean Corpuscular Volume 87.3 fL (80-100); Platelet Count 283 X10^3/uL (150-400)
[2024-12-20 10:35] LABS: Alanine Aminotransferase 20 IU/L (<35); Albumin 4.8 g/dL (3.5-5.0); Albumin Globulin Ratio 1.9 (1.0-2.8); Alkaline Phosphatase 57 U/L (38-126); Blood Urea Nitrogen 14 mg/dL (7-17); Calcium 10.3 mg/dL (8.4-10.2); Carbon Dioxide 28 mmol/L (22-32); Chloride 103 mmol/L (98-107); Cholesterol 146 mg/dL (140-199); Estimated Glomerular Filt Rate > 60 mL/min (>60); Globulin 2.5 g/dL (1.7-4.1); Glucose 83 mg/dL (70-99); HDL Cholesterol 64 mg/dL (40-60); HEMOLYSIS < 15 (0-50); Potassium 5.0 mmol/L (3.4-5.1); Sodium 140 mmol/L (137-145); Total Protein 7.3 g/dL (6.3-8.2); Triglycerides 206 mg/dL (35-150)
[2024-12-20 10:55] LABS: Progesterone, Total 2.41 ng/mL
[2024-12-20 11:10] LABS: Estradiol, Total 11.3 pg/mL
== END ==
PROVIDERS: PCP Student in an Organized Health Care Education/Training Program; Referring Provider Specialist; Visit Provider Specialist
DX: E78.2 Mixed hyperlipidemia (principal); I10 Essential (primary) hypertension; N95.9 Unspecified menopausal and perimenopausal disorder; Z79.890 Hormone replacement therapy; R53.83 Other fatigue
CPT/HCPCS: 36415; 80053; 80061; 82670; 84144; 84270; 84402; 84403; 85025